=== PATIENT | male | born 1995 | race Caucasian/White ===

== ENCOUNTER → 2022-12-25 | Outpatient (REF) | payer OTHER ==
[2022-12-25 15:22] LABS: BASO % 0.3 % (0.0-1.0); EOS # 0.2 10^3/uL (0.0-0.5); EOS % 2.6 % (0.0-3.0); HEMATOCRIT 44.5 % (42.0-52.0); HEMOGLOBIN 15.1 g/dl (13.5-17.5); LYMPH # 1.6 10^3/uL (1.5-5.0); LYMPH % 23.6 % (24.0-44.0); MEAN CORPUSCULAR HEMOGLOBIN 30.1 pg (27.0-33.0); MEAN CORPUSCULAR HGB CONC 33.9 g/dl (32.0-36.5); MEAN CORPUSCULAR VOLUME 88.6 fl (80.0-96.0); MONO # 0.5 10^3/uL (0.0-0.8); MONO % 6.9 % (2.0-8.0); NEUTROPHILS # 4.6 10^3/uL (1.5-8.5); NEUTROPHILS % 66.3 % (36.0-66.0); PLATELET COUNT, AUTOMATED 312 10^3/uL (150-450); RED BLOOD COUNT 5.02 10^6/uL (4.30-6.10); WHITE BLOOD COUNT 6.9 10^3/uL (4.0-10.0)
[2022-12-25 15:57] LABS: ALKALINE PHOSPHATASE 60 U/L (46-116); ALT/SGPT 27 U/L (7.0-40); AST/SGOT 13 U/L (<34); BILIRUBIN,TOTAL 0.7 MG/DL (0.3-1.2); BLOOD UREA NITROGEN 13 MG/DL (9-23); CALCIUM LEVEL 9.9 MG/DL (8.5-10.1); CARBON DIOXIDE LEVEL 25 MMOL/L (20-31); CHLORIDE LEVEL 105 MMOL/L (98-107); CHOLESTEROL LEVEL 185 MG/DL (<200); CHOLESTEROL RISK RATIO 3.79 (<5); CREATININE FOR GFR 0.92 MG/DL (0.70-1.30); GLOMERULAR FILTRATION RATE > 60.0 (>60); GLUCOSE, FASTING 94 MG/DL (60-100); HDL CHOLESTEROL 48.7 MG/DL (>40); LDL CHOLESTEROL 112.1 MG/DL (<100); NON-HDL-C 136.3 MG/DL; POTASSIUM SERUM 4.2 MMOL/L (3.5-5.1); SODIUM LEVEL 139 MMOL/L (136-145); THYROID STIMULATING HORMONE 1.173 uIU/ML (0.55-4.78); TOTAL PROTEIN 7.4 G/DL (5.7-8.2); TRIGLYCERIDES LEVEL 121 MG/DL (<150)
[2022-12-25 15:58] LABS: HEMOGLOBIN A1c 5.2 % (4.0-6.0)
== END ==
LOC: M LAB REF 14:50
PROVIDERS: ATTEND Nurse Practitioner Family
DX: Z13.220 Encounter for screening for lipoid disorders (principal); Z13.1 Encounter for screening for diabetes mellitus; Z13.228 Encounter for screening for other metabolic disorders

== ENCOUNTER → 2024-01-21 | Outpatient (REF) | payer OTHER ==
[2024-01-23 18:51] LABS: F040-IGE TUNA 2.46 kU/L (<0.10)
== END ==
LOC: M LAB REF 16:09
PROVIDERS: ATTEND Allergy & Immunology Allergy
DX: T78.02XA Anaphylactic reaction due to shellfish (crustaceans), initial encounter (principal); X58.XXXA Exposure to other specified factors, initial encounter; Y92.89 Other specified places as the place of occurrence of the external cause; Y93.89 Activity, other specified; Y99.8 Other external cause status